=== PATIENT | male | born 1970 | race Caucasian/White ===

== ENCOUNTER 2018-01-11 13:03 | Emergency (ER) | payer BC ==
[2018-01-11 13:22] VITALS: BP 139/91
--- NOTE | 2018-01-11 15:04 | UC ---
Ear Complaint HPI - HPI Summary HPI Summary: 47 y/o male presents to the urgent care c/o RT ear pain for the past week. Pt reports he saw his PCP on 01/06/2018 and was Dx w/ Amoxicillin PO for Rt otitis media. Pt states symptoms are not improving. Pain is 10/10 today. He has been taking Ibuprofen PO and Tylenol PO w/o any improvement. He noticed some ear drainage this morning. Pt couldn't sleep last night do to ear pressure and pain. Pt denies fever, dizziness, ARAIZA, SOB, chest pain, abdominal pain, N/v/D. - History of Current Complaint Chief Complaint: UCEar Stated Complaint: R EAR PAIN Time Seen by Provider: 01/11/18 14:22 Hx Obtained From: Patient Onset/Duration: Gradual Onset, Lasting Days - 6 days, Still Present, Worse Since - 3 days Severity Initially: Mild Severity Currently: Severe Pain Intensity: 10 Pain Scale Used: 0-10 Numeric Aggravating Factors: Other - touch ear Alleviating Factors: OTC Meds, Heat Associated Signs/Symptoms: Positive: Hearing Loss, URI Symptoms - Allergies/Home Medications Allergies/Adverse Reactions: Allergies Allergy/AdvReac Type Severity Reaction Status Date / Time No Known Allergies Allergy Verified 01/11/18 13:22 PMH/Surg Hx/FS Hx/Imm Hx Previously Healthy: Yes - Pt denies pMHX - Surgical History Surgical History: None - Family History Known Family History: Positive: Hypertension - Social History Occupation: Employed Full-time Lives: With Family Alcohol Use: None Substance Use Type: None Smoking Status (MU): Never Smoked Tobacco Review of Systems Constitutional: Negative Skin: Negative Eyes: Negative ENT: Ear Ache - RT ear pain, Nasal Discharge, Other - decrease hearing Respiratory: Negative Cardiovascular: Negative Gastrointestinal: Negative Genitourinary: Negative Motor: Negative Neurovascular: Negative Musculoskeletal: Negative Neurological: Negative Psychological: Negative Is Patient Immunocompromised?: No All Other Systems Reviewed And Are Negative: Yes Physical Exam - Summary Physical Exam Summary: Vital signs: reviewed General: well developed, well nourished male sitting in the examining table w/o any apparent distress Skin: [place], warm and dry, no evidence of atopic dermatitis, psoriasis, seborrhea. HEENT: -Head: atraumatic, non tender; no scalp dermatitis. -Eyes: sclera and conjunctiva clear, PERRLA, EOMI -Ears: RT pre auricular lymphadenopathy . RT external ear canal impacted w/ cerumen and yellowish purulent discharge, pinna tenderness on palpation, unable to visualize RT TM , LF external ear canal clear and LF TM WNL. TMs normal w/ out bulging or retraction. No Perforation -Nose/Face: erythematous and edematous nasal mucosa with clear rhinorrhea, no frontal or maxillary sinus tender to palpation. -Mouth/Throat: Mucous membrane moist, posterior pharynx clear, no erythema or exudates. Neck: supple, FROM, nontender, no lymphadenopathy, no meningismus. Chest: Clear to auscultation, normal breath sounds Abd: soft, Bowel sounds active, Nontender. Back: no spinal or CVAT Neuro: A&O x4, GCS 15, no focal neuro deficits, normal behavior for age. Triage Information Reviewed: Yes Vital Signs: Initial Vital Signs Temp 97.8 F 01/11/18 13:19 Pulse 56 01/11/18 13:19 Resp 18 01/11/18 13:19 BP 139/91 01/11/18 13:19 Pulse Ox 100 01/11/18 13:19 Ear Complaint Course/Dx - Course Course Of Treatment: 47 y/o male presents to the urgent care c/o RT ear pain for the past week. Pt reports he saw his PCP on 01/06/2018 and was Dx w/ Amoxicillin PO for Rt otitis media. Pt states symptoms are not improving. Pain is 10/10 today. He has been taking Ibuprofen PO and Tylenol PO w/o any improvement. He noticed some ear drainage this morning. Pt couldn't sleep last night do to ear pressure and pain. Pt denies fever, dizziness, ARAIZA, SOB, chest pain, abdominal pain, N/V/D. Pt w/ RT external ear canal impacted w/ cerumen and yellowish drainage and left anterior cervical and preauricular lymphadenopathy on examination. RT ear irrigation ordered. Irrigation performed by Nurse. Pt tolerated well procedure w/o any adverse effect. RT external w/ moderate erythema and yellowish purulent discharge still present, RT TM injected w/ erythema, no light reflex, no perforation. Pt will be Tx for Otitis externa and Media. Pt advised to stop Amoxicillin PO. Pt Rx AugmentinPO, Ibuprofen PO and Cortisporin otic drops. Pt advised if not improvement of symptoms to f/u w/ ENT Dr Wheeler for further treatment. Pt's BP is elevated today advised to decrease salt in diet, monitor BP and f/u with PCP for further management. Pt understood and agreed w/ plan of care. - Differential Dx/Diagnosis Differential Diagnosis/HQI/PQRI: Barotrauma, Cerumen Impaction, Otitis Externa, Otitis Media, Perforated TM, URI Provider Diagnoses: 1- RT otitis externa. 2- Rt otitis Media. 3- Elevated BP w / Hx of HTN Discharge - Sign-Out/Discharge Documenting (check all that apply): Patient Departure - D/C home All imaging exams completed and their final reports reviewed: No Studies - Discharge Plan Condition: Stable Disposition: HOME Prescriptions: Amoxicillin/Clavulanate TAB* [Augmentin TAB 875*] 875 mg PO BID #20 tab Ibuprofen TAB* [Motrin TAB* 800 MG] 800 mg PO Q6H PRN #30 tab PRN Reason: otalgia Neomyc/Polym/HC 1% OTIC SUSP* [Cortisporin Otic Susp 1%*] 4 drop RIGHT EAR TID # 1 btl Patient Education Materials: Ear Infection (ED), Low-Sodium Diet (ED) Referrals: Chuy Mojica MD [Primary Care Provider] - 3 Days Deandre Wheeler MD [Medical Doctor] - 5 Days Additional Instructions: 1- Please take the full course of the antibiotic to avoid resistance. Stop taking Amoxicillin PO 2- Apply Cortisporin Otic drops as directed to alleviate ear infection 3-Please take ibuprofen PO q6-8hrs prn as instructed after meals to alleviate pain and swelling. Increase fluid intake, eat well, rest and avoid strenuous exercise 4-If symptoms do not improve or worsen please f/u w/ ENT DR Wheeler for further evaluation and treatment. 5-Your BP is elevated today. please decrease salt in your diet, monitor BP and if it continues to be elevated please f/u with your PCP for further management - Billing Disposition and Condition Condition: STABLE Disposition: Home
== END 2018-01-11 15:13 | disposition home or self-care (01) ==
LOC: UCEAST 13:03
DX: H60.91 Unspecified otitis externa, right ear (principal); H66.91 Otitis media, unspecified, right ear; R03.0 Elevated blood-pressure reading, without diagnosis of hypertension
CPT/HCPCS: 99213; G0463